=== PATIENT | female | born 1990 | race American Indian/Alaskan Native ===

== ENCOUNTER 2020-02-12 13:18 | Emergency (ER) | payer MEDICAID ==
[2020-02-12 13:40] VITALS: BP 116/79
--- NOTE | 2020-02-12 14:01 | Emergency Department Report ---
Chief Complaint: Pain General Stated Complaint: BODY ACHES/HEADACHE Time Seen by Provider: 02/12/20 13:56 - HPI History of Present Illness: Patient is a 29-year-old female presents emergency room with complaints of headache and generalized body aches that began yesterday. She has associated sneezing, occasional dry cough, rhinorrhea, congestion. She denies any vomiting, diarrhea, fever, sore throat, ear pain, abdominal pain, chest pain, shortness of breath. No past medical history. No allergies to medications. She denies any known sick contacts. No recent travel. Vitals are normal On exam: Non toxic appearing, no acute distress atraumatic, normocephalic normal appearance of the eyes, PERRL, EOMI, no periorbital edema or ecchymosis moist mucus membranes, normal oropharynx, normal TMs and canals bilaterally, normal nasal turbinates, no sinus tenderness elevation bilaterally regular heart rate and rhythm, no gallops, no rubs, no murmurs breath sounds are clear bilaterally, no w/r/r, no stridor, no respiratory distress, no accessory muscle use A&O x4, no focal neuro deficit skin is warm, dry, intact Patient is presenting with viral URI like symptoms She has no clinical signs of bacterial pneumonia or bacterial bronchitis She has no clinical signs of bacterial sinusitis, no clinical signs of dehydration Discussed supportive care and symptomatic treatment with patient Patient is presenting with the symptoms during a COVID-19 pandemic, discussed the possibility of COVID-19 with patient, discussed strict return precautions, discussed outpatient testing, discussed self quarantine Patient does not meet hospital criteria for admission or for hospital COVID-19 testing, she has no fever, no hypoxia, her breath sounds are clear with good air movement Discussed very strict return precautions with patient Patient referred to primary care doctor Medical screening examination performed and there is no threat to life or limb at this time - Exam Vital Signs: Vital Signs 02/12/20 13:39 Temperature 97.9 F Pulse Rate 74 Respiratory 18 Rate Blood Pressure 116/79 [Right] O2 Sat by Pulse 99 Oximetry MSE screening note: Focused history and physical exam performed. Due to findings the following was ordered: ED Disposition for MSE Clinical Impression: Viral URI Disposition: MED SCREENING EXAM-LEFT Is pt being admited?: No Does the pt Need Aspirin: No Condition: Stable Instructions: Viral Respiratory Infection, [id number], COVID-19: How to Protect Yourself and Others - CDC, COVID-19, Prevent the Spread of COVID-19 if You Are Sick - [facility] [place] Additional Instructions: Please increase your fluid intake over the next several days. May take Tylenol as needed for fever or body aches. May take [id number] cold symptom relief medication such as Mucinex or TheraFlu. Follow-up with a primary care doctor for reexamination. Return to emergency room immediately for any new or worsening symptoms including but not limited to difficulty breathing, shortness of breath, severe chest pain, unable to tolerate by mouth intake, etc. Please self quarantine for 2 weeks from the onset of your symptoms. Please do not go out in public. If you are around others at home please wear a mask. If you need to cough or sneeze please do so in a napkin and immediately throw it away and immediately wash your hands. Wash your hands frequently. Wipe everything down. Recommend for you to get COVID-19 testing, may have this done at primary care doctor, health department, [facility] drive thru testing site. Referrals: MARYLIN DEMARCO MD [Staff Physician] - 2-3 Days [facility] [Provider Group] - 2-3 Days Time of Disposition: 14:00 Print Language: AZERI
== END 2020-02-12 14:00 | disposition left against medical advice (07) ==
LOC: ED 13:18
DX: R05 Cough (principal); R51.9 Headache, unspecified; Z53.21 Procedure and treatment not carried out due to patient leaving prior to being seen by health care provider